=== PATIENT | female | born 1980 | race Caucasian/White ===

== ENCOUNTER → 2017-04-05 | Outpatient (REF) | payer MEDICAID ==
[2017-04-07 14:11] LABS: HPV HYBRID CAPTURE II Negative (Negative)
== END ==
LOC: M LAB REF 18:01
DX: Z12.4 Encounter for screening for malignant neoplasm of cervix (principal)

== ENCOUNTER → 2019-04-17 | Outpatient (REF) | payer OTHER ==
[~2019-04-17] MED LIST: MOTR200T44 PO; TYLE325T5 PO; VITAPRTA PO
== END ==
LOC: M SFHCWAGY 10:46
PROVIDERS: ATTEND Specialist
DX: Z01.419 Encounter for gynecological examination (general) (routine) without abnormal findings (principal)

== ENCOUNTER 2019-08-10 11:53 | Day surgery (SDC) | payer OTHER ==
[~2019-08-10] VITALS: Ht 157.5 cm; Wt 53.5 kg
[2019-08-10] VITALS (7 sets, daily range): BP systolic 104–136; BP diastolic 58–78
[~2019-08-10 11:53] MED LIST changes: +LR 1,000 ML IV ONE; +PREVTAB2 PO; +PREZ600T3 PO; +SERT-141 PO; +ceFAZolin SOD 2 GM in IV 1 EA IV ONE
[2019-08-10] MEDS ORDERED: LIDOCAINE 2% 100MG/5ML SDV (FOR ANES.) As Ordered ONE (12:10)
[2019-08-10] MEDS ORDERED: fentaNYL 100 MCG/2 ML INJECTION (J3010) As Ordered ONE (12:10)
[2019-08-10] MEDS ORDERED: propofoL 200 MG/20 ML VIAL As Ordered ONE ×2 (12:10→14:02)
[2019-08-10] MEDS ORDERED: MIDAZOLAM INJ 2MG/2ML VIAL (J2250 PER 1MG) As Ordered ONE (12:10)
[2019-08-10] MEDS ORDERED: ROCURONIUM BROMIDE 50 MG/5 ML VIAL As Ordered ONE (12:10)
[2019-08-10] MEDS ORDERED: BUPIVACAINE HCL 0.25% 10ML VIAL As Ordered ONE (12:13)
[2019-08-10 12:18] LABS: HEMATOCRIT 40.8 % (36.0-47.0); HEMOGLOBIN 13.4 g/dl (12.0-15.5); MEAN CORPUSCULAR HEMOGLOBIN 30.3 pg (27.0-33.0); MEAN CORPUSCULAR HGB CONC 32.8 g/dl (32.0-36.5); MEAN CORPUSCULAR VOLUME 92.3 fl (80.0-96.0); PLATELET COUNT, AUTOMATED 329 10^3/uL (150-450); RED BLOOD COUNT 4.42 10^6/uL (4.00-5.40); WHITE BLOOD COUNT 5.9 10^3/uL (4.0-10.0)
[2019-08-10] MEDS ORDERED: SCOPOLAMINE 1MG TRANSDERMAL PATCH As Ordered ONE (12:23)
[2019-08-10] MEDS ORDERED: SCOPOLAMINE 1MG TRANSDERMAL PATCH TOP ONE (12:30)
[2019-08-10] MEDS ORDERED: LR 1,000 ML IV ONE (12:30)
[2019-08-10] MEDS ORDERED: ACETAMINOPHEN 1000MG 100ML IV BTL (OFIRMEV) (J0131 PER 10MG) As Ordered ONE (12:54)
[2019-08-10] MEDS ORDERED: dexameTHASONE 4 MG/ML 1ML VIAL (J1100 PER 1MG) As Ordered ONE (12:54)
[2019-08-10] MEDS ORDERED: HYDROmorphone HCL 2 MG/ML 1ML VIAL (J1170) As Ordered ONE (12:55)
[2019-08-10] MEDS ORDERED: ONDANSETRON 4MG/2ML VIAL As Ordered ONE (13:14)
[2019-08-10] MEDS ORDERED: KETOROLAC 60 MG/2 ML VIAL As Ordered ONE (13:15)
[2019-08-10] MEDS ORDERED: METOCLOPRAMIDE INJ 10MG/2ML VIAL (J2765 PER 1) As Ordered ONE (13:15)
[2019-08-10] MEDS ORDERED: SUGAMMADEX SODIUM 500 MG/5 ML VIAL (BRIDION) As Ordered ONE (13:17)
[2019-08-10] MEDS ORDERED: ONDANSETRON 4MG/2ML VIAL IV PRN ×2 (14:30)
[2019-08-10] MEDS ORDERED: PERCOCET 5MG/325MG TAB PO PRN ×3 (14:30)
[2019-08-10] MEDS ORDERED: fentaNYL 100 MCG/2 ML INJECTION (J3010) IV PRN (14:30)
[2019-08-10] MEDS ORDERED: KETOROLAC 30 MG/ML 1ML VIAL IV PRN ×2 (14:30)
[2019-08-10] MEDS ORDERED: LR 1,000 ML IV SCH ×2 (14:30)
[2019-08-10] MEDS ORDERED: METOCLOPRAMIDE INJ 10MG/2ML VIAL (J2765 PER 1) IV PRN (14:30)
[2019-08-10] MEDS ORDERED: MORPHINE 4 MG/ML 1ML VIAL/SYRINGE (J2270) IV PRN (14:30)
[2019-08-10] MEDS ORDERED: OXYC1TAB23 PO (16:46)
[2019-08-10] MEDS ORDERED: IBUP-1022 PO (16:47)
[2019-08-10] MEDS ORDERED: DOCUSATE SODIUM 100 MG CAP PO SCH (21:00)
[2019-08-11] MEDS ORDERED: SERTRALINE HCL 25 MG TABLET PO SCH (09:00)
--- NOTE | 2019-08-16 10:46 | RO ---
DATE OF PROCEDURE: 08/10/2019 PREOPERATIVE DIAGNOSIS: Menorrhagia. POSTOPERATIVE DIAGNOSIS: Menorrhagia. PROCEDURE: Robotic-assisted laparoscopy hysterectomy. Cystoscopy. SURGEON: Dr. Neto Esposito INFORMATICS NURSE: Sonia Millard NP ANESTHESIA: General endotracheal. ESTIMATED BLOOD LOSS: 50 mL. URINE OUTPUT: 100 mL. FINDINGS: Normal sized uterus. Normal ovaries and fallopian tubes with evidence of prior tubal sterilization. Normal upper abdomen. OPERATIVE SUMMARY: The patient taken to the operating room where general endotracheal anesthesia was induced. She was prepped and draped in sterile fashion in the dorsal lithotomy position. A Rob catheter was placed. A VCare uterine manipulator was placed. A periumbilical incision made with a scalpel. The Veress needle was placed through this incision while tenting up on the skin of the abdomen. An intra-abdominal location of the Veress needle was assessed with the use of a saline filled syringe. A pneumoperitoneum was created. The Veress needle was removed. An 8 mm trocar using UGOBE was inserted through this incision. Three 8 mm suprapubic ports were placed under direct visualization. The patient was placed in Trendelenburg position. The da Neelma surgical robot was docked to the ports. Using the fenestrated bipolar and vessel sealer, the fallopian tubes, round ligaments, and utero-ovarian ligaments were coagulated and incised. The anterior and posterior leaves of the broad ligament were . A bladder flap was created. The uterine vessels were coagulated and incised. Using the monopolar Endoshears, a colpotomy was created in the upper vagina at the level of the VCare cup. This was extended circumferentially around the vagina. The specimen containing the uterus and cervix was removed through the vagina. The vaginal cuff was closed with #1 V-Loc suture in running locked fashion. The pelvis was irrigated with good hemostasis noted. A cystoscopy was performed using a 70 degrees cystoscope. Bilateral ureteral jets were identified. There was no evidence of injury to the bladder. All instruments were removed. The sponge, instrument and needle counts were correct. The skin was closed with #4-0 Monocryl subcuticular sutures. Sonia Millard NP, assisted throughout the entire procedure. She helped position the patient and insert the ports. She helped manipulate the uterus and remove the specimen. She was indispensable to the performance of the procedure.
== END 2019-08-10 20:55 | disposition home or self-care (01) ==
LOC: M SDC 11:53 → M OBS 15:47 → M SDC 20:55
PROVIDERS: ATTEND Specialist
DX: N92.0 Excessive and frequent menstruation with regular cycle (principal); D25.9 Leiomyoma of uterus, unspecified; N80.0 Endometriosis of uterus; F17.218 Nicotine dependence, cigarettes, with other nicotine-induced disorders; F41.9 Anxiety disorder, unspecified; Z79.899 Other long term (current) drug therapy
CPT/HCPCS: 36415; 58571; 85027; 86850; 86900; 86901; 88307; 96374; J0131; J0690; J1100; J1170; J1885; J2250; J2405; J2765; J3010

== ENCOUNTER → 2020-11-25 | Outpatient (CLI) | payer OTHER ==
[~2020-11-25] MED LIST changes: +IBUP-1022 PO; -LR 1,000 ML IV ONE; +OXYC1TAB23 PO; -ceFAZolin SOD 2 GM in IV 1 EA IV ONE
[2020-11-25 18:41] LABS: FOLLICLE STIMULATING HORMONE 7.8 mIU/mL; LUTEINIZING HORMONE 9.4 mIU/mL
== END ==
LOC: M PLALAB 14:13
PROVIDERS: ATTEND Internal Medicine Endocrinology, Diabetes & Metabolism
DX: R94.6 Abnormal results of thyroid function studies (principal)

== ENCOUNTER → 2021-01-26 | Outpatient (CLI) | payer OTHER ==
[~2021-01-26] MED LIST changes: +LEVO50TA5 PO; +SPIR-10 PO
== END ==
LOC: M LABSMTC 10:12
PROVIDERS: ATTEND Anesthesiology
DX: Z01.812 Encounter for preprocedural laboratory examination (principal); Z11.52 Encounter for screening for COVID-19

== ENCOUNTER 2021-01-30 07:58 | Day surgery (SDC) | payer OTHER ==
[~2021-01-30] VITALS: Ht 157.5 cm; Wt 62.7 kg
[~2021-01-30 07:58] MED LIST changes: +LR 1,000 ML IV ONE
[2021-01-30 08:26] LABS: HEMATOCRIT 39.2 % (36.0-47.0); HEMOGLOBIN 13.4 g/dl (12.0-15.5); MEAN CORPUSCULAR HEMOGLOBIN 31.7 pg (27.0-33.0); MEAN CORPUSCULAR HGB CONC 34.2 g/dl (32.0-36.5); MEAN CORPUSCULAR VOLUME 92.7 fl (80.0-96.0); PLATELET COUNT, AUTOMATED 350 10^3/uL (150-450); RED BLOOD COUNT 4.23 10^6/uL (4.00-5.40); WHITE BLOOD COUNT 5.6 10^3/uL (4.0-10.0)
[2021-01-30] MEDS ORDERED: SCOPOLAMINE 1MG TRANSDERMAL PATCH TOP ONE (09:00)
[2021-01-30] MEDS ORDERED: BUPIVACAINE HCL 0.25% 10ML VIAL As Ordered ONE (10:07)
[2021-01-30] MEDS ORDERED: SUGAMMADEX SODIUM 500 MG/5 ML VIAL (BRIDION) As Ordered ONE (10:31)
[2021-01-30] MEDS ORDERED: dexameTHASONE 4 MG/ML 1ML VIAL (J1100 PER 1MG) As Ordered ONE (10:31)
[2021-01-30] MEDS ORDERED: ROCURONIUM BROMIDE 50 MG/5 ML VIAL As Ordered ONE (10:31)
[2021-01-30] MEDS ORDERED: MIDAZOLAM INJ 2MG/2ML VIAL (J2250 PER 1MG) As Ordered ONE (10:31)
[2021-01-30] MEDS ORDERED: HYDROmorphone HCL 2 MG/ML 1ML VIAL As Ordered ONE (10:31)
[2021-01-30] MEDS ORDERED: ONDANSETRON 4MG/2ML VIAL As Ordered ONE (10:31)
[2021-01-30] MEDS ORDERED: LIDOCAINE 2% 100MG/5ML SDV (FOR ANES.) As Ordered ONE (10:31)
[2021-01-30] MEDS ORDERED: propofoL 200 MG/20 ML VIAL As Ordered ONE (10:31)
[2021-01-30] MEDS ORDERED: KETOROLAC 60MG 2ML VIAL As Ordered ONE (10:31)
[2021-01-30] MEDS ORDERED: fentaNYL 100 MCG/2 ML INJECTION (J3010) As Ordered ONE (10:31)
[2021-01-30] MEDS ORDERED: ACETAMINOPHEN 1000MG 100ML IV BTL (OFIRMEV) (J0131 PER 10MG) As Ordered ONE (10:36)
--- NOTE | 2021-01-30 11:16 | ROOPDOC ---
[facility] Report Of Operation Report of Operation DATE OF PROCEDURE: 01/30/21 PREPROCEDURE DIAGNOSES: Pelvic pain, ovarian cysts. POSTPROCEDURE DIAGNOSES: Same. PROCEDURE PERFORMED: Laparoscopic bilateral salpingo-oophorectomy. SURGEON: Mary Avitia MD ANESTHESIA: GETA. ESTIMATED BLOOD LOSS: Approximately 10 mL. COMPLICATIONS: none. FINDINGS: Surgically absent uterus. Normal ovaries and fallopian tubes. Normal upper abdomen. SPECIMENS REMOVED: Bilateral fallopian tubes and ovaries PROCEDURE NOTE: The patient was taken to the operating room where general endotracheal anesthesia was induced. She was prepped and draped in a sterile fashion in the dorsal lithotomy position. A sponge stick was placed in the vagina to use as a manipulator. A periumbilical incision was made with a scalpel. A Veress needle was placed through this incision while tenting up on the skin of the abdomen. An intra-abdominal location the Veress needle was assessed with the use of a saline filled syringe. A pneumoperitoneum was created. The Veress needle was removed. A 10 mm trocar using Curves was ins erted through this incision. Two 5 mm suprapubic ports were placed under direct visualization. A grasping instrument was used to elevate each fallopian tube. A LigaSure device was used to coagulate and incise the IP ligaments and broad ligament attachments to the fallopian tubes and ovaries. Both tubes and ovaries were removed through the suprapubic port. The pneumoperitoneum was released. All instruments were removed. The skin was closed with 4-0 Monocryl subcuticular sutures. Sponge, instrument, and needle counts were correct. The patient went to the recovery room in stable condition. MARY AVITIA MD Jan 30, 2021 11:16
[2021-01-30] MEDS ORDERED: IBUP-1022 PO (11:17)
[2021-01-30] MEDS ORDERED: HYDROMORPHONE HCL 0.5 MG/ 0.5 ML SYRINGE (J1170 PER 1) IV PRN (11:30)
[2021-01-30] MEDS ORDERED: METOCLOPRAMIDE INJ 10MG/2ML VIAL (J2765 PER 1) IV PRN (11:30)
[2021-01-30] MEDS ORDERED: ONDANSETRON 4MG/2ML VIAL IV PRN (11:30)
[2021-01-30] MEDS ORDERED: fentaNYL 100 MCG/2 ML INJECTION (J3010) IV PRN (11:30)
[2021-01-30] MEDS ORDERED: LR 1,000 ML IV SCH ×2 (11:30→11:35)
[2021-01-30] MEDS ORDERED: oxyCODONE 5MG TAB PO PRN (11:30)
[2021-01-30] MEDS ORDERED: ESTR1TAB PO (11:33)
[2021-01-30] MEDS ORDERED: PERCOCET 5MG/325MG TAB PO PRN (11:35)
[2021-01-30 13:30] VITALS: BP 125/63
== END 2021-01-30 13:40 | disposition home or self-care (01) ==
LOC: M SDC 07:58
PROVIDERS: ATTEND Specialist
DX: R10.2 Pelvic and perineal pain (principal); N83.10 Corpus luteum cyst of ovary, unspecified side
CPT/HCPCS: 36415; 58661; 85027; 88305; J0131; J1100; J1170; J1885; J2250; J2405; J3010